=== PATIENT | male | born 1985 | race Caucasian/White ===

== ENCOUNTER 2017-05-29 09:35 | Day surgery (SDC) | payer BC ==
[~2017-05-29] VITALS: Ht 180.3 cm; Wt 137.9 kg
--- NOTE | ~2017-05-29 | OP ---
PATIENT NAME: ANGELITA NINO MEDICAL RECORD: [id number] :81 LOCATION:D.OPS ADMISSION DATE: SURGEON: JUAN CARLOS RAM MD DATE OF OPERATION: 05/29/2017 PREOPERATIVE DIAGNOSIS: Carpal tunnel syndrome of the left hand. POSTOPERATIVE DIAGNOSIS: Carpal tunnel syndrome of the left hand. PROCEDURE: Carpal tunnel release of the left hand. ANESTHESIA: General. INTRAOPERATIVE COMPLICATIONS: None. SUMMARY OF PATHOLOGIC FINDINGS: There is a very tight transverse carpal ligament, was also very thick compressing the median nerve. OPERATIVE SUMMARY IN DETAIL: After obtaining the appropriate preoperative orthopedic surgery consent as well as anesthetic consultation, evaluation, and clearance, the patient was brought to the operating room and placed on the operating table in supine position. After general laryngeal mask airway was administered, tourniquet was placed about the proximal aspect of the left lower extremity and left upper extremity was then prepped and draped in routine sterile fashion. The arm was elevated and exsanguinated and tourniquet was inflated to 250 mmHg. A mid palmar crease incision was made, taken down to the level of the distal aspect of the transverse carpal ligament, which was gently incised. I identified the median nerve, which was then viewed directly with remainder of the excision and release of the incision and release of the transverse carpal ligament. Having complete full release, the wound was irrigated and closed with 4-0 Prolene. Sterile dressings were applied. Tourniquet was deflated. The patient was awakened, taken to recovery room in stable condition. Please note that prior to putting on final dressings, Marcaine was used for local anesthesia. All final needle and sponge counts were correct. TRANSINT:[id number] Voice Confirmation ID: [id number] DOCUMENT ID: [id number] JUAN CARLOS RAM MD at 1842 CC: [id number] DICTATION DATE: 05/29/17 1434 [employer] CONTR[employer] DRILL PRESS OPERATOR: 05/29/17 1455 [facility] 05/29/17 [facility] [address] [place] [address]
[~2017-05-29 09:35] MED LIST: IBUPROFEN800 MG PO
[2017-05-29 10:07] VITALS: BP 142/78; Ht 180.3 cm; Wt 137.9 kg
[2017-05-29] MEDS ORDERED: HYDROCODONE-APA1 TAB PO (14:33)
== END 2017-05-29 15:27 | disposition home or self-care (01) ==
LOC: D.OPS 09:35 → D.PAN 12:00 → D.OPS 14:00 → D.PAN 14:00 → D.OPS 14:15
DX: G56.03 Carpal tunnel syndrome, bilateral upper limbs (principal); E66.01 Morbid (severe) obesity due to excess calories; Z68.41 Body mass index [BMI] 40.0-44.9, adult; Z01.812 Encounter for preprocedural laboratory examination

== ENCOUNTER 2017-07-06 07:48 | Day surgery (SDC) | payer BC ==
[~2017-07-06] VITALS: Ht 180.3 cm; Wt 137.9 kg
--- NOTE | ~2017-07-06 | OP ---
PATIENT NAME: ANGELITA NINO MEDICAL RECORD: [id number] :81 LOCATION:LIT ADMISSION DATE: SURGEON: JUAN CARLOS RAM MD DATE OF OPERATION: 07/06/2017 PREOPERATIVE DIAGNOSIS: Carpal tunnel syndrome of the right wrist. POSTOPERATIVE DIAGNOSIS: Carpal tunnel syndrome of the right wrist. PROCEDURE: Right carpal tunnel release. SURGEON: Juan Carlos Ram MD ANESTHESIA: General. INTRAOPERATIVE COMPLICATIONS: None. SUMMARY OF PATHOLOGIC FINDINGS: The patient had a very tight thickened transverse carpal ligament consistent with preoperative diagnosis, EMGs, and NCVS. OPERATIVE SUMMARY IN DETAIL: After obtaining the appropriate preoperative orthopedic surgery consent as well as anesthetic consultation, evaluation and clearance, the patient was brought to the operating room and placed on the operating table in supine position. After general laryngeal mask airway was administered, tourniquet was placed on the proximal aspect of the right upper extremity. Right upper extremity was then prepped and draped in routine sterile fashion. The arm was elevated and exsanguinated and tourniquet was inflated to 250 mmHg. A mid palmar crease incision was made and taken down the level of the distal aspect of the transverse carpal ligament. A small incision was made. Median nerve was identified, protected with a freer elevator for the rest of the operation. The transverse carpal ligament was then incised in its entirety using the Fahad light knife as an additional layer of protection. The transverse carpal ligament was released in its entirety to the proximal wrist crease. Having completed this, the wound was irrigated and closed with 4-0 Prolene in mattress style fashion. The area was locally infiltrated with 0.25% Marcaine and 0.25% lidocaine. Having completed this, sterile dressings were applied. Tourniquet was deflated. The patient was awakened and taken to recovery room in stable condition. All final needle and sponge counts were correct. TRANSINT:[id number] Voice Confirmation ID: [id number] DOCUMENT ID: [id number] 07/17/17 Corrected laterality per ute Butler. JUAN CARLOS RAM MD at 1917 CC: [id number] DICTATION DATE: 07/06/17 1134 MARKETING PRODUCTION MANAGER: 07/06/17 1143 [facility] 07/06/17 [facility] [address] [place] [address]
[~2017-07-06 07:48] MED LIST changes: +HYDROCODONE-APA1 TAB PO
[2017-07-06 09:40] VITALS: BP 134/86; Ht 180.3 cm; Wt 137.9 kg
[2017-07-06] MEDS ORDERED: HYDROCODONE-APA1 TAB PO (11:36)
== END 2017-07-06 13:05 | disposition home or self-care (01) ==
LOC: D.OPS 07:48 → D.PAN 08:30 → D.OPS 10:00 → D.PAN 10:00 → D.OPS 10:15
DX: G56.01 Carpal tunnel syndrome, right upper limb (principal); E66.01 Morbid (severe) obesity due to excess calories; Z68.41 Body mass index [BMI] 40.0-44.9, adult; Z01.812 Encounter for preprocedural laboratory examination

== ENCOUNTER 2018-09-24 15:56 | Observation (INO) | payer OTHER, BC ==
[2018-09-24] VITALS (7 sets, daily range): BP systolic 130–149; BP diastolic 79–88; Ht 180.3 cm; Wt 154.5 kg
[~2018-09-24] VITALS: Ht 180.3 cm; Wt 154.5 kg
--- NOTE | 2018-09-24 15:58 | NUR ---
TRAUMA BAND [id number]
--- NOTE | 2018-09-24 16:18 | NUR ---
CHART GIVEN TO EDP, NO VERBAL ORDERS GIVEN AT THIS TIME.
[2018-09-24 16:57] LABS: BASOPHILS 0.3 % (0-2); EOSINOPHILS 5.2 % (0-7); HEMATOCRIT 43.4 % (42.0-54.0); HEMOGLOBIN 15.3 g/dL (13.5-17.5); IMMATURE GRANULOCYTES 0.4 % (0-5); LYMPHOCYTES 23.8 % (15-50); MCH 31.5 pg (26.0-34.0); MCHC 35.3 g/dL (31.0-37.0); MCV 89.5 fL (80.0-100.0); MEAN PLATELET VOLUME 10.1 fL (7.4-10.4); MONOCYTES 11.2 % (2-11); NEUTROPHILS 59.1 % (40-80); PLATELET COUNT 191 10x3/uL (130-400); RBC 4.85 10x6/uL (4.20-6.10); RDW 12.8 % (11.5-14.5); WBC 9.4 10x3/uL (4.8-10.8)
[2018-09-24 17:28] LABS: ALBUMIN 3.9 g/dL (3.4-5.0); ALKALINE PHOSPHATASE 43 U/L (46-116); ALT (SGPT) 40 U/L (10-68); BILIRUBIN - TOTAL 0.38 mg/dL (0.2-1.3); CALC OSMOLALITY 289 mosm/kg (275-300); CALCIUM 8.9 mg/dL (8.5-10.1); CARBON DIOXIDE 27.8 mmol/L (21.0-32.0); CHLORIDE - SERUM 107 mmol/L (98-107); CREATININE - SERUM 1.5 mg/dL (0.6-1.3); GLUCOSE 92 mg/dL (74-106); POTASSIUM - SERUM 4.3 mmol/L (3.5-5.1); PROTEIN - SERUM 7.5 g/dL (6.4-8.2); SODIUM 144 mmol/L (136-145); UREA NITROGEN 20 mg/dL (7-18); eGFR NON AFRICAN AMERICAN 56 mL/min (90-120)
[2018-09-24 17:54] LABS: CREATINE KINASE 360 UL (21-232)
[2018-09-24 17:55] LABS: CKMB 2.5 U/L (0.0-3.6)
[2018-09-24 18:43] LABS: APPEARANCE CLEAR (CLEAR); BILIRUBIN NEGATIVE (NEGATIVE); COLOR YELLOW (YELLOW); GLUCOSE NEGATIVE (NEGATIVE); KETONE NEGATIVE (NEGATIVE); NITRITE NEGATIVE (NEGATIVE); PROTEIN NEGATIVE (NEGATIVE); UROBILINOGEN NORMAL (NORMAL)
--- NOTE | 2018-09-24 18:56 | NUR ---
[facility] COM CONTACTED FOR PT TRANSFER. WILL CALL BACK.
--- NOTE | 2018-09-24 20:10 | NUR ---
THIS NURSE TRANSFERED PT TO ROOM, WHILE WHEELING PT OUT OF ED ROOM, RADIO CALL THAT PT ROOM 2205 WAS DIRTY. THIS NURSE WAS NOT NOTIFIED DURING REPORT. PT BROUGHT TO 2205, WHERE ROOM APPEARED DIRTY AND NO STAFF PRESENT CLEANING. THIS NURSE THEN BROUGHT PT BACK TO ED ROOM UNTIL 2205 CLEANED.
[2018-09-25 04:00] VITALS: BP 123/80
[2018-09-25 06:08] LABS: BASOPHILS 0.2 % (0-2); EOSINOPHILS 5.4 % (0-7); HEMATOCRIT 41.6 % (42.0-54.0); HEMOGLOBIN 14.1 g/dL (13.5-17.5); IMMATURE GRANULOCYTES 0.3 % (0-5); LYMPHOCYTES 30.6 % (15-50); MCH 30.5 pg (26.0-34.0); MCHC 33.9 g/dL (31.0-37.0); MCV 89.8 fL (80.0-100.0); MEAN PLATELET VOLUME 10.5 fL (7.4-10.4); MONOCYTES 9.7 % (2-11); NEUTROPHILS 53.8 % (40-80); PLATELET COUNT 182 10x3/uL (130-400); RBC 4.63 10x6/uL (4.20-6.10); RDW 12.7 % (11.5-14.5); WBC 8.8 10x3/uL (4.8-10.8)
--- NOTE | 2018-09-25 06:39 | NUR ---
PATIENT IN BED RESTING WITH NO NEEDS NOTED OR STATED. IV TO LEFT HAND WITH NS AT 125ML/HR. CALL LIGHT AND WATER IN REACH. AT BEDSIDE. ALERT AND ORENTED ABLE TO VOICE NEEDS AND WANTS TO STAFF.
[2018-09-25 06:41] LABS: CALC OSMOLALITY 279 mosm/kg (275-300); CALCIUM 8.3 mg/dL (8.5-10.1); CARBON DIOXIDE 26.1 mmol/L (21.0-32.0); CHLORIDE - SERUM 105 mmol/L (98-107); CKMB 2.6 U/L (0.0-3.6); CREATININE - SERUM 1.3 mg/dL (0.6-1.3); GLUCOSE 97 mg/dL (74-106); MAGNESIUM - SERUM 1.8 mg/dL (1.8-2.4); PHOSPHOROUS 3.4 mg/dL (2.5-4.9); SODIUM 139 mmol/L (136-145); TROPONIN-I < 0.017 ng/mL (0.000-0.060); UREA NITROGEN 18 mg/dL (7-18); eGFR NON AFRICAN AMERICAN 67 mL/min (90-120)
[2018-09-25 06:43] LABS: CREATINE KINASE 688 UL (21-232)
--- NOTE | 2018-09-25 08:45 | NUR ---
PT RESTING IN BED WITH SPOUSE AT BEDSIDE. NO ACUTE DISTRESS NOTED AT THIS TIME. RESP EVEN AND UNLABORED. IV TO LEFT HAND WITH NS @ 125ML/HR INFUSING VIA PUMP. SITE WITHOUT REDNESS OR EDEMA. DENIES PAIN AT THIS TIME. SCABBED AREAS TO LEFT LOWER LEG AND LOWER LEFT BACK. NO DRAINAGE NOTED AT THIS TIME. DENIES FURTHER NEEDS AT THIS TIME. CL WITHIN REACH. ENCOURAGED TO CALL WITH NEEDS. CONTINUE POC
[2018-09-25 09:38] VITALS: BP 127/52
[2018-09-25] MEDS ORDERED: SILVADENE20 GM TP (12:15)
--- NOTE | 2018-09-25 12:31 | NUR ---
PT IV D/C'D FOR DISCHARGE FROM LEFT HAND. CATH INTACT. DISCUSSED DISCHARGE PAPERWORK, MONITORING FOR S/S OF INFECTION TO AREAS ON LEFT LOWER EXT AND LEFT LOWER BACK. DENIES QUESTIONS AT THIS TIME.
--- NOTE | 2018-09-25 12:50 | NUR ---
PT TAKEN OUT WITH ALL PERSONAL BELONGINGS FOR D/C. NO ACUTE DISTRESS NOTED AT THIS TIME
== END 2018-09-25 12:51 | disposition home or self-care (01) ==
LOC: D.MS → D.ER 15:56 → D.MS 19:27 → OBSVTIME 19:27 → D.MS 09-25 12:51
PROVIDERS: Emergency Medicine; ADMIT Family Medicine; ATTEND Family Medicine
DX: T24.212A Burn of second degree of left thigh, initial encounter (principal); T24.232A Burn of second degree of left lower leg, initial encounter; W85.XXXA Exposure to electric transmission lines, initial encounter; E86.0 Dehydration; F17.220 Nicotine dependence, chewing tobacco, uncomplicated; Z23 Encounter for immunization